=== PATIENT | male | born 1985 | race Caucasian/White ===

== ENCOUNTER 2018-07-26 02:25 | Emergency (ER) | payer BC ==
[~2018-07-26] VITALS: Ht 175.3 cm; Wt 95.3 kg
--- NOTE | 2018-07-26 03:00 | NUR ---
Dr. Lux at bedside for MSE.
[2018-07-26 03:20] LABS: BASOPHILS % (AUTO) 0.3 % (0.0-2.0); EOSINOPHILS # (AUTO) 0.5 K/uL (0.0-0.7); EOSINOPHILS % (AUTO) 7.8 % (0.0-7.0); HEMATOCRIT 43.3 % (36.7-47.1); HEMOGLOBIN 14.7 g/dL (12.5-16.3); LYMPHOCYTES # (AUTO) 2.2 K/uL (20.0-40.0); LYMPHOCYTES % (AUTO) 34.7 % (20.5-51.5); MEAN CORPUSCULAR HEMOGLOBIN 29.1 uug (23.8-33.4); MEAN CORPUSCULAR HGB CONC 34 g/dL (32.5-36.3); MEAN CORPUSCULAR VOLUME 85.7 fL (73.0-96.2); MONOCYTES # (AUTO) 0.4 K/uL (2.0-10.0); MONOCYTES % (AUTO) 5.8 % (0.0-11.0); NEUTROPHILS # (AUTO) 3.3 K/uL (1.8-8.9); NEUTROPHILS % (AUTO) 51.4 % (38.5-71.5); PLATELET COUNT (AUTO) 172 K/uL (152-348); RED BLOOD CELL COUNT(AUTO) 5.05 MIL/uL (4.06-5.63); WHITE BLOOD COUNT (AUTO) 6.5 K/uL (3.6-10.2)
[2018-07-26 03:25] LABS: CREATININE 1.1 mg/dL (0.6-1.3); POTASSIUM 3.8 mmol/L (3.5-5.1)
[2018-07-26 03:33] LABS: BILIRUBIN,DIRECT 0.1 mg/dL (0.0-0.2); BILIRUBIN,TOTAL 0.4 mg/dL (0.2-1.0); TOTAL PROTEIN, SERUM 7.5 g/dL (6.4-8.2)
--- NOTE | 2018-07-26 06:15 | NUR ---
Patient discharged to home in stable conditon. Written and verbal after care instructions given. Patient verbalizes understanding of instructions. Patient ambulated out of ER with steady gait, no acute signs of distress, VSS, all belongings taken.
[2018-07-26 06:16] VITALS: BP 137/79
== END 2018-07-26 06:17 | disposition home or self-care (01) ==
LOC: ER 02:25
DX: R07.89 Other chest pain (principal); R11.2 Nausea with vomiting, unspecified
CPT/HCPCS: 36415; 70030-TC; 71045; 85025; 85730; 93005; A4663

== ENCOUNTER 2019-04-20 00:06 | Emergency (ER) | payer BC ==
[~2019-04-20] VITALS: Ht 182.9 cm; Wt 99.8 kg
[2019-04-20 00:47] LABS: BASOPHILS % (AUTO) 0.4 % (0.0-2.0); EOSINOPHILS # (AUTO) 0.3 K/uL (0.0-0.7); EOSINOPHILS % (AUTO) 4.4 % (0.0-7.0); HEMATOCRIT 44.9 % (36.7-47.1); HEMOGLOBIN 15.3 g/dL (12.5-16.3); LYMPHOCYTES # (AUTO) 3.3 K/uL (20.0-40.0); LYMPHOCYTES % (AUTO) 42.9 % (20.5-51.5); MEAN CORPUSCULAR HEMOGLOBIN 29.8 uug (23.8-33.4); MEAN CORPUSCULAR HGB CONC 34 g/dL (32.5-36.3); MEAN CORPUSCULAR VOLUME 87.6 fL (73.0-96.2); MONOCYTES # (AUTO) 0.5 K/uL (2.0-10.0); MONOCYTES % (AUTO) 6.5 % (0.0-11.0); NEUTROPHILS # (AUTO) 3.5 K/uL (1.8-8.9); NEUTROPHILS % (AUTO) 45.8 % (38.5-71.5); PLATELET COUNT (AUTO) 165 K/uL (152-348); RED BLOOD CELL COUNT(AUTO) 5.13 MIL/uL (4.06-5.63); WHITE BLOOD COUNT (AUTO) 7.6 K/uL (3.6-10.2)
[2019-04-20] MEDS ORDERED: ALBUTEROL SULFATE 2.5 MG/3 ML NEBU ONE (00:53)
[2019-04-20 00:58] LABS: CREATININE 1.5 mg/dL (0.6-1.3); POTASSIUM 3.8 mmol/L (3.5-5.1)
[2019-04-20] MEDS ORDERED: ALBUTEROL SULFATE 2.5 MG/3 ML NEBU NEB ONE (01:00)
[2019-04-20 01:04] LABS: BILIRUBIN,DIRECT 0.1 mg/dL (0.0-0.2); BILIRUBIN,TOTAL 0.5 mg/dL (0.2-1.0); TOTAL PROTEIN, SERUM 8.4 g/dL (6.4-8.2)
--- NOTE | 2019-04-20 01:34 | NUR ---
Patient discharged to home in stable conditon. Written and verbal after care instructions given. Patient verbalizes understanding of instructions.
--- NOTE | 2019-04-20 01:34 | NUR ---
Patient does not wish to proceed with medical care recommended by Dr. Lewis. Patient given information related to possible complications, up to and including , which could occur as a result of leaving the hospital at this time. Patient verbalizes understanding of risks involved due to leaving against medical advice. Patient has signed AMA form.
[2019-04-20 01:35] VITALS: BP 122/84
== END 2019-04-20 01:36 | disposition left against medical advice (07) ==
LOC: ER 00:11
DX: R07.89 Other chest pain (principal); J45.901 Unspecified asthma with (acute) exacerbation
CPT/HCPCS: 36415; 70030-TC; 71045; 85025; 85730; 93005; A4663

== ENCOUNTER 2019-05-29 18:54 | Emergency (ER) | payer BC ==
[~2019-05-29] VITALS: Ht 180.3 cm; Wt 95.3 kg
--- NOTE | 2019-05-29 19:03 | NUR ---
patient came from home with c/o saying he is having an allergic reaction. patient stated his right eye became puffy. Patient c/o of difficulty breathing. Patient placed on the bedside monitor BP: 163/87, HR 108, and spO2 100%, RR 20.
--- NOTE | 2019-05-29 19:05 | NUR ---
Dr. Mcbride at bedside for evaluation.
--- NOTE | 2019-05-29 19:13 | NUR ---
Patient discharged to home in stable conditon. Written and verbal after care instructions given. Patient verbalizes understanding of instructions. VSS stable for discharge. Patient a/o x4. patient self ambulatory with steady gait. Patient exit care package and personal belongings taken home with the patient at discharge.
[2019-05-29 19:16] VITALS: BP 148/85
== END 2019-05-29 19:15 | disposition home or self-care (01) ==
LOC: ER 18:54
DX: T78.40XA Allergy, unspecified, initial encounter (principal); J45.909 Unspecified asthma, uncomplicated; F41.9 Anxiety disorder, unspecified
CPT/HCPCS: A4663

== ENCOUNTER 2021-03-29 15:11 | Emergency (ER) | payer BC, OTHER ==
[~2021-03-29] VITALS: Ht 182.9 cm; Wt 95.3 kg
[2021-03-29 16:01] LABS: *BILIRUBIN,URIN NEGATIVE (NEGATIVE); *CLARITY,URINE CLEAR (CLEAR); *COLOR,URINE YELLOW (YELLOW); *KETONES,URINE NEGATIVE (NEGATIVE); *UROBILINOGEN,URINE 0.2 E.U./dl (NORMAL); LEUKOCYTE ESTERASE ,URINE NEGATIVE (NEGATIVE); NITRITE, URINE NEGATIVE (NEGATIVE); UGLUCOSE NEGATIVE (NEGATIVE)
[2021-03-29 16:03] LABS: *BLOOD, URINE TRACE INTACT (NEGATIVE)
[2021-03-29 16:10] LABS: HEMATOCRIT 43.9 % (36.7-47.1); MEAN CORPUSCULAR VOLUME 87.9 fL (73.0-96.2); PLATELET COUNT (AUTO) 164 K/uL (152-348)
[2021-03-29 16:15] LABS: CREATININE 1.3 mg/dL (0.6-1.3)
[2021-03-29 16:22] LABS: BILIRUBIN,DIRECT 0.2 mg/dL (0.0-0.2); BILIRUBIN,TOTAL 0.5 mg/dL (0.2-1.0); TOTAL PROTEIN, SERUM 8.1 g/dL (6.4-8.2)
[2021-03-29 16:49] LABS: RBC,URINE 0-3 /HPF (0-3)
[2021-03-29 16:50] LABS: BACTERIA,URINE NONE SEEN /HPF (NONE SEEN); SQUAMOUS EPITHELIAL CELL,UR NONE SEEN /HPF (NONE SEEN); WBC,URINE 0-3 /HPF (0-3)
--- NOTE | 2021-03-29 18:04 | NUR ---
PT WAS EVALUATED BY DR EMERY. PT WAS D/C'd TO [facility]. D/C INSTRUCTIONS GIVEN TO THE PT BY DR EMERY.
[2021-03-29 18:06] VITALS: BP 137/82
== END 2021-03-29 18:07 | disposition home or self-care (01) ==
LOC: ER 15:12
DX: R03.0 Elevated blood-pressure reading, without diagnosis of hypertension (principal); J45.909 Unspecified asthma, uncomplicated; F41.9 Anxiety disorder, unspecified; K21.9 Gastro-esophageal reflux disease without esophagitis
CPT/HCPCS: 36415; 85025; 93005; A4663; J7030